=== PATIENT | female | born 1995 | race Caucasian/White ===

== ENCOUNTER 2016-03-20 11:07 | Emergency (ER) | payer OTHER ==
[~2016-03-20] VITALS: Ht 165.1 cm; Wt 81.6 kg
[~2016-03-20 11:07] MED LIST: ADVIL200 M1 PO; ALBUTEROL 3 ML3 ML INH; ALBUTEROL0.09 MG/A1 INH; BACTRIM DS TAB1 EACH PO; BENADRYL ALLERG25 MG PO; CIPRO500 M1 PO; CYCLOBENZAPRINE10 M1 PO; FLEXERIL10 MG PO; IBUPROFEN800 M1 PO; IBUPROFEN800 MG PO; LIDODERM 5% PAT1 PAT TOP; PEPCID20 MG PO; PERCOCET 325 MG1 TA2 PO; PREDNISONE 20MG20 MG PO; PREDNISONE10 MG PO; PRENATAL1 TA1 PO; PYRIDIUM200 M1 PO; SEASONIQUE 0.11 EACH PO; ULTRAM(MONOGRAP50 MG PO; VICODIN5-300 PO; ZITHROMAX Z PA250 MG PO
--- NOTE | 2016-03-20 12:42 | RADIOLOGY REPORT ---
EXAMINATION: XR CHEST CLINICAL INFORMATION: Cough. COMPARISON: None TECHNIQUE: 2 views of the chest were obtained. FINDINGS: No significant abnormality is noted involving the heart, lungs, mediastinum, bony thorax or soft tissues. No focal consolidation or other abnormality is demonstrated. IMPRESSION: Unremarkable examination.
--- NOTE | 2016-03-20 12:48 | ED DYSPNEA/ASTHMA COMPLAINT ---
History of Present Illness General Chief Complaint: Upper Respiratory Sx/Fever Stated Complaint: URI Source: patient Exam Limitations: no limitations Allergies Coded Allergies: Penicillins (Intermediate, RASH 10/16/15) codeine (Mild, RASH 10/16/15) Triage Note: COMPLAINS OF COUGH AND FEELING SOB SINCE LAST PM. O2 SAT 100 % ON RA. COUGH PRODUCTIVE OF YELLOW SPUTUM. AFEBRILE, PT ALSO STATES THAT SHE WOULD LIKE PREGNACY TEST BECAUSE SHE IS A COUPLE OF DAYS LATE WITH HER PERIOD Triage Nurses Notes Reviewed? yes : No Patient currently breastfeeds: No HPI: This patient is a 20-year-old female who presented to the emergency department today for multiple complaints. She reported that this morning she woke up with a sore throat the gets up to a 6 out of 10, bilateral ear pain, cough productive of yellow sputum, and shortness of breath. The patient reported that her son was recently diagnosed with an upper respiratory infection and started on amoxicillin. The patient denied any fevers, chills, vomiting, abdominal pain, back pain, urinary burning, urgency, frequency, or blood in the stool or urine. (DANYEL WEBB PA-C) Vital Signs & Intake/Output Vital Signs & Intake/Output ED Intake and Output 03/21 0000 02 1200 Intake Total Output Total Balance Patient 180 lb Weight Reconcile Medications Albuterol Sulfate (Proair Hfa) 90 MCG HFA.AER.AD 2 PUF INH Q4-6 PRN PRN asthma Azithromycin 250 MG TABLET 1 DP PO AD uri 2 the first day followed by 1 for days 2-5 (CAIN CHAVEZ DO) Past History Travel History Traveled to [place] past 21 day No Medical History Any Pertinent Medical History? 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 No (DANYEL WEBB PA-C) Review of Systems Review of Systems Constitutional: Reports: no symptoms. EENTM: Reports: see HPI. Respiratory: Reports: see HPI. Cardiovascular: Reports: no symptoms. GI: Reports: no symptoms. Genitourinary: Reports: no symptoms. Musculoskeletal: Reports: no symptoms. Skin: Reports: no symptoms. Neurological/Psychological: Reports: no symptoms. All Other Systems: Reviewed and Negative (TRACEY COLE,DANYEL) Physical Exam Physical Exam Respiratory: normal breath sounds, chest non-tender, no respiratory distress, quiet respiration, no wheezes, rales, rhonchi Comments: Well-developed well-nourished person in no acute distress HEENT: Head normocephalic, moist mucous membranes Pupils equally round and reactive to light. Nose is atraumatic. Nasal congestion noted. Tenderness to palpation over the sinuses Bilateral external auditory canals nonerythematous and without debris. Bilateral TM noted to have serous fluid, nonbulging, and nonerythematous Mild pharyngeal injection with no oral pharyngeal lesions or edema. No tonsillar exudates. Uvular shift, drooling, or trismus Neck: Supple, no lymphadenopathy Back: Normal gait Cardiovascular: Regular rate and rhythm with no murmurs Extremity: Normal and equal pulses. Neuro: Alert oriented x3, cranial nerves II through XII grossly intact. Skin: No appreciable rash on exposed skin, skin is warm and dry. Psych: Mood and affect is normal Core Measures ACS in differential dx? No Severe Sepsis Present: No Septic Shock Present: No (TRACEY COLE,DANYEL) Progress Differential Diagnosis: asthma, AMI, bronchitis, costochondritis, CHF, COPD, musculoskeletal pain, pericarditis, pulmonary embolism, pneumonia, pneumothorax, unstable angina, sinusitis, upper respiratory infection, otitis media, otitis externa Plan of Care: Orders Procedure Date/time Status THROAT CULTURE W/QUICK STREP 03/20 1251 Active URINE 03/20 1121 Complete Laboratory Tests 03/20/16 1130: Urine Test NEGATIVE Diagnostic Imaging: Viewed by Me: Radiology Read. Discussed w/RAD: Radiology Read. CXR Impression: PATIENT: LUISA CHIN PRESENT AGE: 20 PATIENT ACCOUNT NO: [id number] : 93 LOCATION: [facility] ORDERING PHYSICIAN: DANYEL WEBB PA-C SERVICE DATE: 03/20/16-1205 EXAM TYPE: RAD - XRY-CHEST XRAY, PA AND LATERAL EXAMINATION: XR CHEST CLINICAL INFORMATION: Cough. COMPARISON: None TECHNIQUE: 2 views of the chest were obtained. FINDINGS: No significant abnormality is noted involving the heart, lungs, mediastinum, bony thorax or soft tissues. No focal consolidation or other abnormality is demonstrated. IMPRESSION: Unremarkable examination. DICTATED BY: TATIANA CISSE MD DATE/TIME DICTATED:03/20/161236 HOME CARE ASSOCIATE:COLLINS DATE/ TIME TRANSCRIBED:03/20/161236 CONFIDENTIAL, DO NOT COPY WITHOUT APPROPRIATE AUTHORIZATION. <Electronically signed in Other Vendor System> SIGNED BY: TATIANA CISSE MD 03/20/16 1242 Initial ED EKG: none (DANYEL WEBB PA-C) Departure Departure Disposition: HOME OR SELF CARE Condition: Stable Clinical Impression Primary Impression: Upper respiratory infection Qualifiers: URI type: unspecified URI Qualified Code: J06.9 - Acute upper respiratory infection, unspecified Referrals: ENIO COLINDRES MD (PCP/Family) Additional Instructions: Take antibiotic as prescribed and for its fulguration. Follow-up with your primary care physician. Return for any worsening symptoms or concerns. Departure Forms: Customer Survey General Discharge Information Prescriptions: Current Visit Scripts Azithromycin 1 DP PO AD #6 TAB 2 the first day followed by 1 for days 2-5 Albuterol Sulfate (Proair Hfa) 2 PUF INH Q4-6 PRN PRN asthma #1 INHAL (DANYEL WEBB PA-C) PA/STEEL DIVISION SUPERVISOR Co-Sign Statement Statement: ED Attending supervision documentation- [] I saw and evaluated the patient. I have also reviewed all the pertinent lab results and diagnostic results. I agree with the findings and the plan of care as documented in the PA's/STEEL DIVISION SUPERVISOR's documentation. [X] I have reviewed the ED Record and agree with the PA's/STEEL DIVISION SUPERVISOR's documentation. [] Additions or exceptions (if any) to the PAs/STEEL DIVISION SUPERVISOR's note and plan are summarized below: [] (CAIN CHAVEZ DO) Critical Care Note Critical Care Note Critical Care Time: non-applicable (DANYEL WEBB PA-C)
[2016-03-20 13:19] VITALS: BP 119/64
[2016-03-20] MEDS ORDERED: AZITHROMYCIN250 M1 PO (13:44)
[2016-03-20] MEDS ORDERED: PROAIR HFA8.5 GM INH (13:46)
== END 2016-03-20 13:48 ==
LOC: ERH 11:07
DX: J06.9 Acute upper respiratory infection, unspecified (principal)
CPT/HCPCS: 81025

== ENCOUNTER 2016-05-05 10:27 | Emergency (ER) | payer OTHER ==
[~2016-05-05] VITALS: Ht 165.1 cm; Wt 76.2 kg
[~2016-05-05 10:27] MED LIST changes: +AZITHROMYCIN250 M1 PO; +PROAIR HFA8.5 GM INH
[2016-05-05] MEDS ORDERED: SEASONIQUE 0.11 EACH PO (10:58)
--- NOTE | 2016-05-05 11:02 | ED GENERAL ADULT ---
History of Present Illness General Chief Complaint: General Adult Stated Complaint: "I FEEL MY THYROID GROWING", ABD AND BACK PAIN Source: patient Exam Limitations: no limitations Vital Signs & Intake/Output Vital Signs & Intake/Output Vital Signs Date Time Temp Pulse Resp B/P Pulse O2 O2 Flow FiO2 Ox Delivery Rate 05/05 1425 98 05/05 1240 98.0 88 16 124/74 100 Room Air 05/05 1225 97.6 05/05 1126 97.6 05/05 1035 97.6 98 18 125/83 98 Room Air Room Air Allergies Coded Allergies: Penicillins (Intermediate, RASH 10/16/15) codeine (Mild, RASH 10/16/15) Reconcile Medications Albuterol Sulfate (Proair Hfa) 90 MCG HFA.AER.AD 2 PUF INH Q4-6 PRN PRN asthma L-Norgest/E.estradion-E.estrad (Seasonique 0.15-0.03-0.01 Tab) 0.15 MG-30 MCG ( 84)/10 MCG (7) [id number] 1 TAB PO DAILY BC (Reported) Meloxicam (Mobic) 15 MG TABLET 1 TAB PO DAILY PRN PAIN Sulfamethoxazole/Trimethoprim (Bactrim 400-80 MG Tablet) 400 MG-80 MG TABLET 1 TAB PO BID UTI Triage Note: TRIAGE: 20 Y/O FEMALE PRESENTS WITH MULTIPLE COMPLAINTS: "I THINK MY THYROID IS GETTING LARGER"; ?; ABDOMNIAL PAIN AND BACK PAIN X3 DAYS. REPORTS PCP SENT HER TO THE EMERGENCY DEPARTMENT FOR ALL OF THE ABOVE. Triage Nurses Notes Reviewed? yes Onset: Gradual Duration: constant Timing: remote history Severity: moderate Severity Numbers: 5 : No Patient currently breastfeeds: No HPI: Patient is a 20-year-old female with a past medical history of hyperthyroidism, asthma presents emergency room with multiple complaints stating that she has complains of increased size of her thyroid making it difficult for patient to swallow 6-8 months patient also complains of hot and cold symptoms and generalized weakness and fatigue for some time now. She also complains of a five-day history of left upper quadrant abdominal pain however patient can tolerate by mouth no change in symptoms denies any significant NSAID use or alcohol use. Last bowel movement was today no blood no melena noted. Patient also complains of a one-month history of intermittent back pain where she has a history of back pain symptoms however no surgical intervention patient denies any mechanism of injury. Denies any fever, chills, cough chest pain, suspect leg swelling vaginal bleeding vaginal discharge hematuria. Patient has been receive an ultrasound for her thyroid. Patient is sexually active. Patient can tolerate by mouth Patient does admit to dysuria Past History Travel History Traveled to [place] past 21 day No Medical History Any Pertinent Medical History? 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 No Review of Systems Review of Systems Constitutional: Reports: see HPI, weakness. Denies: chills, fever. EENTM: Reports: throat pain. Respiratory: Reports: see HPI. Denies: cough. Cardiovascular: Reports: see HPI. Denies: chest pain, palpitations. GI: Reports: see HPI, abdominal pain. Genitourinary: Reports: no symptoms. Musculoskeletal: Reports: see HPI, back pain. Skin: Reports: no symptoms. Neurological/Psychological: Reports: no symptoms. Hematologic/Endocrine: Reports: no symptoms. Immunologic/Allergic: Reports: no symptoms. All Other Systems: Reviewed and Negative Physical Exam Physical Exam General Appearance: well developed/nourished, no apparent distress, alert, comfortable Head: atraumatic Eyes: Bilateral: normal appearance, PERRL, EOMI. Ears, Nose, Throat: normal pharynx, normal ENT inspection, hearing grossly normal Neck: normal inspection, supple, full range of motion, no midline tenderness Respiratory: normal breath sounds, chest non-tender, no respiratory distress Cardiovascular: regular rate/rhythm Peripheral Pulses: 2+ radial (R), 2+ radial (L) Gastrointestinal: normal bowel sounds, soft, LEFT UPPER QUADRANT POINT TENDERNESS NO REBOUND TENDERNESS NO RIGHT LOWER QUADRANT PAIN NO RIGHT UPPER QUADRANT. nO EPIGASTRIC PAIN NO PERITONEAL SIGNS Back: normal inspection, GENERALIZED LOW BACK PAIN Extremities: normal inspection, normal capillary refill, normal range of motion Neurologic/Psych: no motor/sensory deficits, awake, alert, oriented x 3, normal gait, normal mood/affect Reflexes: 2+: knee (R), knee (L). Skin: intact, normal color, warm/dry Lymphatic: no anterior cervical adriano Core Measures ACS in differential dx? No CVA/TIA Diagnosis: No Severe Sepsis Present: No Septic Shock Present: No Progress Differential Diagnoses I considered the following diagnoses in my evaluation of the patient: [Graves' disease, hyperthyroidism, thyroid storm, , appendicitis, pancreatitis, cholecystitis, low back pain, discitis, transverse myelitis, herniated disc, UTI , kidney stone,] Plan of Care: Orders Procedure Date/time Status Add-on Test (ER Only) 05/05 1128 Active LIPASE 05/05 1114 Complete AMYLASE 05/05 1114 Complete THYROID STIMULATING HORMONE 05/05 1108 Complete T3 UPTAKE (THYROXINE BIND CAP) 05/05 1108 Complete FREE T4 05/05 1108 Complete COMPREHENSIVE METABOLIC PANEL 05/05 1108 Complete CBC WITHOUT DIFFERENTIAL 05/05 1108 Complete URINE 05/05 1057 Complete URINALYSIS 05/05 1057 Complete CULTURE,URINE 05/05 1018 Active Laboratory Tests 05/05/16 1127: Amylase 47, Lipase 105 05/05/16 1127: Anion Gap 10, Estimated GFR > 60, BUN/Creatinine Ratio 20.0, Glucose 98, Calcium 10.7 H, Total Bilirubin 0.9, AST 24, ALT 43, Alkaline Phosphatase 65, Total Protein 7.3, Albumin 4.5, Globulin 2.8, Albumin/Globulin Ratio 1.6, TSH < 0.015 L, Free T4 3.83 H, Thyroxine Binding Indx 41.4 H, CBC w Diff NO MAN DIFF REQ, RBC 4.87, MCV 80.5 L, MCH 27.0, RDW 12.3, MPV 8.4, Gran % 55.4, Lymphocytes % 32.1, Monocytes % 8.0, Eosinophils % 3.9, Basophils % 0.6, Absolute Granulocytes 3.5, Absolute Lymphocytes 2.0, Absolute Monocytes 0.5, Absolute Eosinophils 0.2, Absolute Basophils 0, PUBS MCHC 33.6 05/05/16 1058: Urinalysis LIGHT H, Urine Color YEL, Urine Clarity HAZY H, Urine pH 6.0, Ur Specific [place] 1.025, Urine Protein NEG, Urine Ketones NEG, Urine Nitrite NEG, Urine Bilirubin NEG, Urine Urobilinogen 0.2, Ur Leukocyte Esterase NEG, Ur Microscopic SEDIMENT EXAMINED, Urine RBC RARE, Urine WBC RARE, Ur Epithelial Cells FEW, Urine Bacteria MOD H, Urine Hemoglobin TRACE-INTACT, Urine Glucose NEG, Urine Test NEGATIVE Microbiology 05/05 1018 URINE ROUT: Urine Culture - RECD Patient currently is resting comfortably in no apparent distress at this time of thyroid storm Patient's urine culture is pending. Patient will be treated for uncomplicated UTI Endocrine was paged for request of pharmacological treatment for patient's hyperthyroidism. Patient has no right lower quadrant pain at this time of appendicitis patient able tolerate by mouth Discussed disposition plan with mom and patient who agrees and had no questions Patient was provided with a ultrasound for outpatient evaluation of thyroid. Results will be sent to primary care doctor and Dr. Lei I discussed patient with Dr. Lei who agrees with disposition and plan Discussed disposition plan with Dr. Salgado who agrees (ROMULO PRIETO,MICHAEL) Initial ED EKG: none Departure Departure Disposition: HOME OR SELF CARE Condition: Stable Clinical Impression Primary Impression: UTI (urinary tract infection) Secondary Impressions: Abdominal pain, Back pain, Hyperthyroidism Referrals: DAVIDSON SAHNI,SAUD COLINDRES MD,ENIO (PCP/Family) Additional Instructions: As discussed BEGIN THE prescription OF MELOXICAM pain and inflammation. Begin the prescription of Bactrim for UTI. Follow-up with your primary care doctor in 5 days for recheck of symptoms. Begin the prescription of methimazole as directed. Prescription is waiting at [facility] pharmacy. Tomorrow please call the Department of radiology phone number [phone] to call to make an appointment for an ultrasound of your thyroid. The results will be sent to primary care doctor and dust sampler. Tomorrow please follow-up in the cell is dust sampler Dr. Lei for further evaluation treatment. If symptoms worsen return to emergency room. Departure Forms: Customer Survey General Discharge Information Prescriptions: Current Visit Scripts Sulfamethoxazole/Trimethoprim (Bactrim 400-80 MG Tablet) 1 TAB PO BID #6 TAB Meloxicam (Mobic) 1 TAB PO DAILY PRN PAIN #15 TAB Critical Care Note Critical Care Note Critical Care Time: non-applicable
[2016-05-05 11:35] LABS: ABSOLUTE BASOPHIL COUNT 0 /CUMM (0.0-0.2); ABSOLUTE EOSINOPHIL COUNT 0.2 /CUMM (0.0-0.7); ABSOLUTE GRANULOCYTE CT 3.5 /CUMM (1.4-6.5); ABSOLUTE MONOCYTE COUNT 0.5 /CUMM (0.10-0.60); BASOPHIL % 0.6 % (0.0-2.0); EOSINOPHIL % 3.9 % (0-5); GRANULOCYTE % 55.4 % (42.2-75.2); HEMATOCRIT 39.2 % (37-47); MEAN CORPUSCULAR HGB CONC 33.6 G/DL (33.0-37.0); MEAN CORPUSCULAR VOLUME 80.5 FL (81.0-99.0); MEAN PLATELET VOLUME 8.4 FL (7.4-10.4); PLATELET COUNT 281 /CUMM (130-400); RBC DISTRIBUTION WIDTH 12.3 % (11.5-14.5); RED BLOOD CELL CT 4.87 /CUMM (4.20-5.40); WHITE BLOOD CELL COUNT 6.3 /CUMM (4.8-10.8)
[2016-05-05 12:40] VITALS: BP 124/74
[2016-05-05] MEDS ORDERED: BACTRIM 400-801 EACH PO (13:38)
[2016-05-05] MEDS ORDERED: MOBIC15 M1 PO (13:39)
== END 2016-05-05 14:20 ==
LOC: ERH 10:27
PROVIDERS: Physician Assistant
DX: N39.0 Urinary tract infection, site not specified (principal); E05.90 Thyrotoxicosis, unspecified without thyrotoxic crisis or storm; M54.9 Dorsalgia, unspecified
CPT/HCPCS: 81001; 81025; 87086

== ENCOUNTER 2016-08-24 23:05 | Emergency (ER) | payer OTHER ==
[~2016-08-24] VITALS: Ht 167.6 cm; Wt 72.6 kg
[~2016-08-24 23:05] MED LIST changes: +BACTRIM 400-801 EACH PO; +MOBIC15 M1 PO
--- NOTE | 2016-08-24 23:32 | ED GENERAL ADULT ---
History of Present Illness General Chief Complaint: General Adult Stated Complaint: KIDNEY PAIN Source: patient Exam Limitations: no limitations Vital Signs & Intake/Output Vital Signs & Intake/Output Vital Signs Date Time Temp Pulse Resp B/P B/P Pulse O2 O2 Flow FiO2 Mean Ox Delivery Rate 08/24 2308 97.9 110 18 126/78 99 Room Air ED Intake and Output 08/25 0000 08/24 1200 Intake Total Output Total Balance Patient 160 lb Weight Weight Reported by Patient Measurement Method Allergies Coded Allergies: Penicillins (Intermediate, RASH 10/16/15) codeine (Mild, RASH 10/16/15) Reconcile Medications Albuterol Sulfate (Proair Hfa) 90 MCG HFA.AER.AD 2 PUF INH Q4-6 PRN PRN asthma Ibuprofen 600 MG TABLET 1 TAB PO Q6PRN PRN pain with food L-Norgest/E.estradion-E.estrad (Seasonique 0.15-0.03-0.01 Tab) 0.15 MG-30 MCG ( 84)/10 MCG (7) [id number] 1 TAB PO DAILY BC (Reported) Meloxicam (Mobic) 15 MG TABLET 1 TAB PO DAILY PRN PAIN Phenazopyridine HCl (Pyridium) 200 MG TABLET 1 TAB PO TID dysuria Sulfamethoxazole/Trimethoprim (Bactrim 400-80 MG Tablet) 400 MG-80 MG TABLET 1 TAB PO BID UTI Tramadol HCl (Ultram) 50 MG TABLET 1-2 TAB PO Q6PRN PRN severe pain Triage Note: PT TO TRIAGE WITH C/O BILAT FLANK PAIN 9/10, PAIN WITH URINATION, AND BLOOD IN URINE ON/OFF FOR 2 MONTHS. HX OF KIDNEY STONES [id number]. VSS. Triage Nurses Notes Reviewed? yes Onset: 2 MONTHS ON AND OFF Duration: 2 MONTHS Timing: recent history Injury Environment: home Severity: moderate Severity Numbers: 6 Modifying Factors: Improves With: immobilization. Worsens With: movement. : No Patient currently breastfeeds: No HPI: Patient is a 20-year-old female presenting to the emergency department with chief complaint of bilateral flank pain has been on and off for the past 2 months. Patient reports that she also has intermittent blood in her urine. Patient saw the MICROGRINDER OPERATOR yesterday who did a pelvic exam, started patient on antibiotics for urinary tract infection as well as topical ointment to help with a bacterial infection. Patient reports she is not currently sexually active. (MALGORZATA RUSSELL) Past History Travel History Traveled to [place] past 21 day No Medical History Any Pertinent Medical History? see below for history Neurological: migraine EENT: sinusitis Cardiovascular: NONE Respiratory: asthma, bronchitis Gastrointestinal: NONE Hepatic: NONE Renal: nephrolithiasis Musculoskeletal: NONE Psychiatric: NONE Endocrine: hyperthyroidism Blood Disorders: NONE Cancer(s): NONE CREATIVE STRATEGIST/Reproductive: NONE Surgical History Surgical History: appendectomy, , Tonsilectomy Psychosocial History What is your primary language Icelandic Tobacco Use: Current Not Daily Family History Hx Contributory? No (MALGORZATA RUSSELL) Review of Systems Review of Systems Constitutional: Reports: no symptoms. Comments Review of systems: See HPI, All other systems negative. Constitutional, no chills fever or weight loss HEENT: No visual changes no sore throat no congestion Cardiovascular: No chest pain ,palpitation , orthopnea or ankle swelling Skin, no jaundice no rashes Respiratory: No dyspnea cough sputum or hemoptysis GI: No nausea no vomiting : No dysuria Muscle skeletal: no neck pain, Neurologic: No numbness no confusion Psych: No stress anxiety or depression,. Heme/endocrine: No bruising no bleeding no polyuria or polydipsia Immunology: No splenectomy or history of AIDS (MALGORZATA RUSSELL) Physical Exam Physical Exam General Appearance: well developed/nourished, no apparent distress, alert, awake Comments: Well-developed well-nourished person in no acute distress HEENT: Pupils equally round and reactive to light and accommodation. Nose is atraumatic. Neck: Normal inspection Back: Bilateral CVA tenderness. Full range of motion. tender to palpation over Cardiovascular: Regular rate and rhythms no murmurs rubs or gallops, normal JVP Respiratory: Chest nontender. No respiratory distress.breath sounds clear to auscultation bilaterally Abdomen: Soft, nontender nondistended, no appreciable organomegaly. Normal bowel sounds. No ascites, no rebound or guarding. Extremity: No edema Neuro: Alert oriented x3 Skin: No appreciable rash on exposed skin, skin is warm and dry. Psych: Mood and affect is normal, memory and judgment is normal. (MALGORZATA RUSSELL) Core Measures ACS in differential dx? No CVA/TIA Diagnosis: No Severe Sepsis Present: No Septic Shock Present: No (LAUREL SAHIN,ADRIANA) Progress Differential Diagnoses I considered the following diagnoses in my evaluation of the patient: Kidney stone, ureterolithiasis, UTI, pyelonephritis, hydronephrosis, muscle strain Plan of Care: Orders Procedure Date/time Status COMPREHENSIVE METABOLIC PANEL 08/24 2341 Complete CBC WITHOUT DIFFERENTIAL 08/24 2341 Complete URINE 08/25 2311 Complete URINALYSIS 08/25 2311 Complete Laboratory Tests 08/25/16 0006: Anion Gap 11, Estimated GFR > 60, BUN/Creatinine Ratio 17.1, Glucose 96, Calcium 10.2, Total Bilirubin 0.4, AST 18, ALT 28, Alkaline Phosphatase 86, Total Protein 7.5, Albumin 4.9, Globulin 2.6, Albumin/Globulin Ratio 1.9, CBC w Diff NO MAN DIFF REQ, RBC 5.04, MCV 80.2 L, MCH 27.1, RDW 14.1, MPV 8.3, Gran % 61.4 , Lymphocytes % 31.7, Monocytes % 5.1, Eosinophils % 1.2, Basophils % 0.6, Absolute Granulocytes 8.4 H, Absolute Lymphocytes 4.3 H, Absolute Monocytes 0.7 H, Absolute Eosinophils 0.2, Absolute Basophils 0.1, PUBS MCHC 33.8 08/24/165: Urinalysis MOD H, Urine Color YEL, Urine Clarity HAZY H, Urine pH 6.0, Ur Specific Hudson >= 1.030, Urine Protein TRACE H, Urine Ketones NEG, Urine Nitrite NEG, Urine Bilirubin NEG, Urine Urobilinogen 1.0, Ur Leukocyte Esterase TRACE H, Ur Microscopic SEDIMENT EXAMINED, Urine WBC 3-5 H, Ur Epithelial Cells FEW, Urine Bacteria FEW H, Urine Mucus MOD H, Urine Hemoglobin NEG, Urine Glucose NEG, Urine Test NEGATIVE Diagnostic Imaging: Viewed by Me: Radiology Read. Discussed w/RAD: Radiology Read. Radiology Impression: PATIENT: LUISA CHIN PRESENT AGE: 20 PATIENT ACCOUNT NO: [id number] : 93 LOCATION: [facility] ORDERING PHYSICIAN: MALGORZATA PRIETO SERVICE DATE: 08/24/16 EXAM TYPE: RAD - XRY-KIDNEYS, URETERS, BLADDER EXAMINATION: XR KIDNEYS, URETER, BLADDER CLINICAL INDICATION: Flank pain. Rule out kidney stones. COMPARISON: None TECHNIQUE: AP view of the abdomen. FINDINGS: There is scattered stool seen throughout the colon. No distention. No radiopaque calculi seen. There is no organomegaly. The soft tissues are normal. IMPRESSION: Unremarkable abdomen examination. DICTATED BY: KALINA BETANCUR MD DATE/TIME DICTATED:08/24/162353 REGISTERED DENTAL ASSISTANT RDA:COLLINS DATE/TIME TRANSCRIBED:08/24/162353 Initial ED EKG: none Hand-Off Endorsed To: ADRIANA BARRAGAN MD Endorsed Time: 33 Pending: CT (MALGORZATA RUSSELL) Radiology Impression: No acute findings of the abdomen or pelvis. No hydronephrosis or nephrolithiasis. No inflammatory changes. (ADRIANA BARRAGAN MD) Departure Departure Disposition: HOME OR SELF CARE Condition: Stable Clinical Impression Primary Impression: Urinary tract infection Qualifiers: Urinary tract infection type: site unspecified Hematuria presence: without hematuria Qualified Code: N39.0 - Urinary tract infection, site not specified Referrals: ENIO COLINDRES MD (PCP/Family) Additional Instructions: Continue previously prescribed antibiotics by her MICROGRINDER OPERATOR. Return for worsening symptoms or concerns. Take [id number] Motrin and Tylenol as directed for any aches or pains. increase fluid intake. Departure Forms: Customer Survey D/C INS-APPENDICITIS EXCLUSION General Discharge Information Prescriptions: Current Visit Scripts Ibuprofen 1 TAB PO Q6PRN PRN pain #50 TAB with food Tramadol HCl (Ultram) 1-2 TAB PO Q6PRN PRN severe pain #30 TAB Phenazopyridine HCl (Pyridium) 1 TAB PO TID #9 TAB (MALGORZATA RUSSELL) Departure Time of Disposition: 103 PA/GLASSWARE VERIFIER Co-Sign Statement Statement: ED Attending supervision documentation- I saw and evaluated the patient. I have also reviewed all the pertinent lab results and diagnostic results. I agree with the findings and the plan of care as documented in the PA's/GLASSWARE VERIFIER's documentation. x I have reviewed the ED Record and agree with the PA's/GLASSWARE VERIFIER's documentation. [] Additions or exceptions (if any) to the PAs/GLASSWARE VERIFIER's note and plan are summarized below: [] (ADRIANA BARRAGAN MD) Critical Care Note Critical Care Note Critical Care Time: non-applicable (ADRIANA BARRAGAN MD)
--- NOTE | 2016-08-25 00:01 | RADIOLOGY REPORT ---
EXAMINATION: XR KIDNEYS, URETER, BLADDER CLINICAL INDICATION: Flank pain. Rule out kidney stones. COMPARISON: None TECHNIQUE: AP view of the abdomen. FINDINGS: There is scattered stool seen throughout the colon. No distention. No radiopaque calculi seen. There is no organomegaly. The soft tissues are normal. IMPRESSION: Unremarkable abdomen examination.
[2016-08-25 00:16] LABS: ABSOLUTE BASOPHIL COUNT 0.1 /CUMM (0.0-0.2); ABSOLUTE EOSINOPHIL COUNT 0.2 /CUMM (0.0-0.7); ABSOLUTE GRANULOCYTE CT 8.4 /CUMM (1.4-6.5); ABSOLUTE LYMPH COUNT 4.3 /CUMM (1.2-3.4); ABSOLUTE MONOCYTE COUNT 0.7 /CUMM (0.10-0.60); BASOPHIL % 0.6 % (0.0-2.0); EOSINOPHIL % 1.2 % (0-5); GRANULOCYTE % 61.4 % (42.2-75.2); HEMATOCRIT 40.4 % (37-47); MEAN CORPUSCULAR HGB 27.1 PG (27.0-31.0); MEAN CORPUSCULAR HGB CONC 33.8 G/DL (33.0-37.0); MEAN CORPUSCULAR VOLUME 80.2 FL (81.0-99.0); MEAN PLATELET VOLUME 8.3 FL (7.4-10.4); PLATELET COUNT 354 /CUMM (130-400); RBC DISTRIBUTION WIDTH 14.1 % (11.5-14.5); RED BLOOD CELL CT 5.04 /CUMM (4.20-5.40); WHITE BLOOD CELL COUNT 13.6 /CUMM (4.8-10.8)
--- NOTE | 2016-08-25 00:59 | CT SCAN REPORT ---
EXAMINATION: CT ABDOMEN AND PELVIS WITHOUT CONTRAST CLINICAL INFORMATION: Flank pain. Rule out kidney stone. COMPARISON: Radiograph 08/24/2016. TECHNIQUE: Multidetector volumetric imaging was performed from the superior aspect of the liver through the pubic symphysis. Sagittal and coronal reformatted images were obtained on the technologist's workstation. DLP: 285 mGy-cm FINDINGS: LUNG BASES: The visualized lung bases are unremarkable. LIVER, GALLBLADDER, AND BILIARY TREE: The liver is normal in size, shape, and attenuation. No focal hepatic lesion or biliary ductal dilatation is present. The gallbladder is unremarkable with no evidence of radiopaque gallstones, gallbladder wall thickening, or obvious pericholecystic inflammatory changes. PANCREAS: Unremarkable. SPLEEN: Unremarkable. ADRENAL GLANDS: Unremarkable. KIDNEYS AND URETERS: The kidneys are normal in size, shape, and attenuation. No hydronephrosis, hydroureter, or calculi seen. No perinephric stranding. BLADDER: Unremarkable. GASTROINTESTINAL TRACT: The stomach and small bowel are unremarkable. No dilated loops of bowel or evidence of obstruction. The appendix is not visualized, with clips seen at the tip of the cecum suggesting prior appendectomy. No colonic wall thickening or inflammatory change. Mild colonic stool burden. No significant diverticulosis. No free air or free fluid. ABDOMINAL WALL: No significant hernia is appreciated. LYMPH NODES: Normal. VASCULAR: Unremarkable. PELVIC VISCERA: The uterus and adnexa are unremarkable. OSSEOUS STRUCTURES: No acute or suspicious osseous abnormality. IMPRESSION: No acute findings of the abdomen or pelvis. No hydronephrosis or nephrolithiasis. No inflammatory changes.
[2016-08-25] MEDS ORDERED: ULTRAM50 M1 PO (01:05)
[2016-08-25] MEDS ORDERED: IBUPROFEN600 M1 PO (01:05)
[2016-08-25] MEDS ORDERED: PYRIDIUM200 M1 PO (01:10)
[2016-08-25 01:13] VITALS: BP 122/72
== END 2016-08-25 01:16 ==
LOC: ERH 23:05
PROVIDERS: Physician Assistant
DX: N39.0 Urinary tract infection, site not specified (principal)
CPT/HCPCS: 74000; 74176; 81001; 81025; 96372; J1885